=== PATIENT | female | born 1965 | race African-American/Black ===

== ENCOUNTER 2017-12-20 12:39 | Emergency (ER) | payer OTHER ==
[~2017-12-20] VITALS: Ht 160 cm; Wt 77.1 kg
[2017-12-20 13:28] LABS: Basophils # (auto) 0.1 uL; Basophils % (auto) 0.6 % (0.0-2.0); Eosinophils # (auto) 0.1 uL; Eosinophils % (auto) 0.7 % (0.0-7.0); Hematocrit 43.9 % (36.0-46.0); Hemoglobin 14.5 g/dL (12.2-16.2); Lymphocytes # (auto) 3.2 uL; Lymphocytes % (auto) 33.8 % (10.0-50.0); Mean Corpuscular Volume 84.9 fL (80.0-100.0); Monocytes # (auto) 0.6 uL; Monocytes % (auto) 6.3 % (0.0-12.0); Neutrophils # (auto) 5.6 uL; Neutrophils % (auto) 58.6 % (37.0-80.0); Nucleated Red Blood Cells % 0.1 %; Platelet Count (auto) 299 10^3/uL (140-450); Red Blood Cells 5.17 10^6/uL (4.0-5.20); Red Cell Distribution Width 15.1 % (11.8-14.3); White Blood Cell 9.5 10^3/uL (4.4-10.8)
[2017-12-20 13:53] LABS: Albumin 4.1 g/dL (3.4-5.0); BUN/Creatinine Ratio 13.6; Bilirubin, Total 0.8 mg/dL (0.2-1.0); Calcium 9.3 mg/dL (8.5-10.1); Magnesium 2.7 mg/dL (1.6-2.6); Potassium 3.1 mmol/L (3.5-5.1)
[2017-12-20] MEDS ORDERED: HYDROcodone-ACET 10/325MG TAB PO ONE (14:30)
[2017-12-20] MEDS ORDERED: KETOROLAC TROMETH 30 MG/ML 1ML VIAL IV ONE (15:30)
[2017-12-20] MEDS ORDERED: SODIUM CHLORIDE 0.9% 1,000 ML IV ONE (15:30)
[2017-12-20] MEDS ORDERED: LORazepam 2MG/ML-1ML VIAL IV ONE (16:30)
[2017-12-20] MEDS ORDERED: NITROGLYCERIN 0.4 MG SL TAB SL ONE (17:00)
[2017-12-20] MEDS ORDERED: POTASSIUM CHLORIDE 8 MEQ TAB PO ONE (17:00)
[2017-12-20] MEDS ORDERED: ENOXAPARIN SOD 80 MG/0.8ML SYRINGE SC ONE ×2 (17:00→17:45)
[2017-12-20] MEDS ORDERED: HYDROcodone-ACET 5/325MG TAB PO PRN (17:15)
[2017-12-20] MEDS ORDERED: LORazepam 0.5 MG TAB PO PRN (17:15)
[2017-12-20] MEDS ORDERED: NITROGLYCERIN 0.4 MG SL TAB SL PRN ×2 (17:15)
[2017-12-20] MEDS ORDERED: ONDANSETRON HCL 4 MG/2 ML VIAL IV PRN (17:15)
[2017-12-20] MEDS ORDERED: MORPHINE SULF INJ 2 MG/ML SYRINGE 1ML IV PRN (17:15)
[2017-12-20] MEDS ORDERED: ACETAMINOPHEN 325 MG TAB PO PRN (17:15)
[2017-12-20] MEDS ORDERED: ALUM & MAG HYDROX-SIMETH LIQ(MAALOX) 30 ML PO ONE (17:15)
[2017-12-20] MEDS ORDERED: DEXTROSE (50%) 50ML SYRG IV PRN (17:15)
[2017-12-20] MEDS ORDERED: MORPHINE SULFATE 4 MG/ML SYR/VIAL IV PRN (17:15)
[2017-12-20] MEDS ORDERED: DOCUSATE SOD 100 MG CAP PO PRN (17:15)
[2017-12-20] MEDS ORDERED: ZOLPIDEM TARTRATE 5 MG TAB PO PRN (17:15)
[2017-12-20] MEDS ORDERED: MORPHINE SULFATE 4 MG/ML SYR/VIAL IV ONE (17:15)
[2017-12-20] MEDS ORDERED: ONDANSETRON HCL 4 MG/2 ML VIAL IV ONE (17:15)
[2017-12-20] MEDS ORDERED: CARVEDILOL 3.125 MG TAB PO ONE (17:30)
[2017-12-20] MEDS ORDERED: ASPirin 81 mg TAB PO ONE (17:30)
[2017-12-20] MEDS ORDERED: DILTIAZEM HCL 120MG ER CAP PO ONE (17:30)
[2017-12-20] MEDS ORDERED: TRIAMTERENE/HCTZ 37.5/25 MG CAP/TAB PO ONE (17:30)
[2017-12-20] MEDS ORDERED: CLOPIDOGREL BISULFATE 75 MG TAB PO ONE (17:30)
[2017-12-20] MEDS ORDERED: IOHEXOL 350 MG/ML 100ML IJ ONE ×3 (17:34→17:47)
[2017-12-20] MEDS ORDERED: MULTIPLE VITAMIN TAB PO ONE (17:45)
[2017-12-20] MEDS ORDERED: DOCUSATE SOD 100 MG CAP PO ONE (17:45)
[2017-12-20] MEDS ORDERED: ENALAPRIL MALEATE 2.5 MG TAB PO ONE (17:45)
[2017-12-20] MEDS ORDERED: FAMOTIDINE 20 MG TAB PO ONE (17:45)
[2017-12-20 19:00] LABS: INR 1.26 (0.9-1.15); Prothrombin Time 13.3 sec (9.27-12.13)
[2017-12-20 19:32] VITALS: BP 116/86
[2017-12-20 19:35] LABS: Hematocrit 40.5 % (36.0-46.0); Hemoglobin 13.6 g/dL (12.2-16.2)
[2017-12-20] MEDS ORDERED: FAMOTIDINE 20 MG TAB PO SCH (22:00)
[2017-12-20] MEDS ORDERED: ACCU-CHEK COMFORT CURVE STRIP VI SCH (22:00)
[2017-12-20] MEDS ORDERED: SODIUM CHLOR 0.9% PF (SALINE LOCK) 10ML VIAL/SYR IV SCH (22:00)
[2017-12-20] MEDS ORDERED: DILTIAZEM HCL 120MG ER CAP PO SCH (22:00)
[2017-12-20] MEDS ORDERED: ENALAPRIL MALEATE 2.5 MG TAB PO SCH (22:00)
[2017-12-20] MEDS ORDERED: ATORVASTATIN 20 MG TAB PO SCH (22:00)
[2017-12-20] MEDS ORDERED: ENOXAPARIN SOD 80 MG/0.8ML SYRINGE SC SCH (22:00)
[2017-12-20] MEDS ORDERED: InsuLIN REG 1unit/0.01ml Soln (100units/ml) SC SCH (22:00)
[2017-12-20] MEDS ORDERED: CARVEDILOL 3.125 MG TAB PO SCH (22:00)
[2017-12-21] MEDS ORDERED: DOCUSATE SOD 100 MG CAP PO SCH (10:00)
[2017-12-21] MEDS ORDERED: MULTIPLE VITAMIN TAB PO SCH (10:00)
[2017-12-21] MEDS ORDERED: ASPirin 81 mg TAB PO SCH (10:00)
[2017-12-21] MEDS ORDERED: CLOPIDOGREL BISULFATE 75 MG TAB PO SCH (10:00)
[2017-12-21] MEDS ORDERED: TRIAMTERENE/HCTZ 37.5/25 MG CAP/TAB PO SCH (10:00)
== END 2017-12-20 19:52 | disposition short-term general hospital (02) ==
LOC: ER 12:39
DX: I99.8 Other disorder of circulatory system (principal); I21.4 Non-ST elevation (NSTEMI) myocardial infarction; I10 Essential (primary) hypertension; R51 Headache
CPT/HCPCS: 36415; 70450; 71045; 75635; 80053; 83036; 83735; 83880; 84443; 84484; 85014; 85018; 85025; 85610; 86850; 86900; 86901; 86920; 93005; 93971; 96372; 96374; 96375; 99285; J1650; J1885; J2060; J2405; Q9967